=== PATIENT | female | born 1980 | race Caucasian/White ===

== ENCOUNTER 2019-04-06 14:20 | Day surgery (SDC) | payer OTHER ==
[2019-04-06] VITALS (7 sets, daily range): BP systolic 113–126; BP diastolic 80–89; PULSE 75–97; TEMP 98.1–98.2
[~2019-04-06] VITALS: Ht 160 cm; Wt 64.0 kg
[2019-04-06] MEDS ORDERED: SYNTHROID 0.0.025 MG PO (14:50)
[2019-04-06] MEDS ORDERED: OMEGA-31 SGL PO (14:50)
[2019-04-06] MEDS ORDERED: ZYRTEC 10MG10 MG PO (14:50)
--- NOTE | 2019-04-06 17:00 | NUR ---
The patient was taken back via cart to the oeprating room. The patient's chart was sent with her to surgery. The patient's belongings were taken over to the recovery room and will be transferred with her to her room post operatively. The patient's family was going back to the waiting room to receive updates from the operating room during surgery.
--- NOTE | 2019-04-06 19:10 | NUR ---
Pt. arrived to the floor from PACU at this time. Pt. is A&OX3 but groggy. Vitals stable. Pt. reports feeling like they need to urinate. Pt. assisted to bathroom at this time. Pt. unable to urinate yet and got very nauseated. Pt. given Zofran and assisted back to bed. Will monitor.
--- NOTE | 2019-04-06 21:10 | NUR ---
Pt. reported pain at a 6 on pain scale, gave 1 Percocet.
--- NOTE | 2019-04-06 21:30 | NUR ---
Pt. reported that nausea had not improved. Dr. Khan notified. New orders received.
--- NOTE | 2019-04-06 21:58 | NUR ---
Pt. continues to have difficulty urinating and with pain. Dr. Quintanilla notified. Discussed straight cathing. Reported that pt. was bladderscanned and only had [address] Quintanilla agrees it would be best to have pt. stay the night. Will continue to monitor.
[2019-04-07] VITALS: BP 106/63; PULSE 67; TEMP 98.1
[2019-04-07 04:00] VITALS: BP 116/85; PULSE 69; TEMP 97.9
[2019-04-07 07:31] VITALS: BP 95/60; PULSE 73; TEMP 98.8
[2019-04-07] MEDS ORDERED: PYRIDIUM 100MG100 MG PO (08:17)
[2019-04-07] MEDS ORDERED: NORCO 325 MG-51 TAB PO (08:17)
--- NOTE | 2019-04-07 08:45 | NUR ---
Patient is discharging home. Darryl seen patient and said she can discharge but needs to go to the office this afternoon. Discharge instructions discussed with patient. No questions verbalized. INT discontinued. Explained she has a prescription to get filled at the pharmacy. Copies of discharge instructions given to patient. Patient walked out via wheel chair by Darlyn MARTINEZ.
== END 2019-04-07 08:45 | disposition home or self-care (01) ==
LOC: SDCO 14:20 → SURG 19:10 → SDCO 04-07 08:45
DX: C67.9 Malignant neoplasm of bladder, unspecified (principal); E78.00 Pure hypercholesterolemia, unspecified; E03.9 Hypothyroidism, unspecified; E28.2 Polycystic ovarian syndrome; Z88.1 Allergy status to other antibiotic agents; Z88.0 Allergy status to penicillin; F17.210 Nicotine dependence, cigarettes, uncomplicated
CPT/HCPCS: OP; C1758; C1769; C2617; J0690; J2405; J2550; J2704; J3010; J7030; J7120; Q9967

== ENCOUNTER 2019-04-11 09:28 | Outpatient (CLI) | payer OTHER ==
[~2019-04-11] VITALS: Ht 160 cm; Wt 63.3 kg
[~2019-04-11 09:28] MED LIST: NORCO 325 MG-51 TAB PO; OMEGA-31 SGL PO; PYRIDIUM 100MG100 MG PO; SYNTHROID 0.0.025 MG PO; ZYRTEC 10MG10 MG PO
[2019-04-11 10:03] VITALS: BP 107/77; PULSE 100; TEMP 98.3
--- NOTE | 2019-04-11 11:05 | NUR ---
Pt presented for admission at 0945 with her . Admission assessment done for outpatient services. Meds were reconciled. Patient teaching done for special chemotherapy precautions to be observed for 24 hours post voiding at home. Pt verbalized understanding. Pt has spoken to her physician and signed consent for instillation of mitomycin. Pharmacy was notified of pt readiness. Pt up to void prior to starting instillation. Placed in semi fowlers position, pericare done, and sterile technique used to insert a 16 burmese kang, balloon inflated with 10 ml of sterile water. Less than 20 ml of clear yellow urine returned. Mitomycin slowly instilled into bladder. Kang balloon deflated and catheter r emoved. Instillation was completed at 1048. Pt tolerated procedure well. Dressed self and after reviewing instructions again, left ambulatory with her . She is aware to void at 1248 and that may void before if bladder becomes too full and cannot tolerate. Double flushing was again emphasized along with good housekeeping.
== END 2019-04-11 11:00 | disposition home or self-care (01) ==
LOC: EUO 09:28 → MEDICAL 09:28 → EUO 11:00
DX: C67.6 Malignant neoplasm of ureteric orifice (principal)
CPT/HCPCS: OP; J9280

== ENCOUNTER 2019-05-03 12:41 | Day surgery (SDC) | payer OTHER ==
[~2019-05-03] VITALS: Ht 160 cm; Wt 68.0 kg
[2019-05-03 13:01] VITALS: BP 107/76; PULSE 96; TEMP 97.4
[2019-05-03 15:40] VITALS: BP 117/81; PULSE 76; TEMP 98.7
--- NOTE | 2019-05-03 15:40 | NUR ---
The patient arrived back to [facility] from the recovery room at this time. The patient appears alert and oriented and denies any pain or nausea at this time. Post operative vital signs were started at this time. The patient reports mimimal pain at this time. The patient requests to try some water at this time. The patient's family was brought back to be at her bedside. Call light is within reach. Will continue to monitor the patient.
[2019-05-03] MEDS ORDERED: NORCO 325 MG-51 TAB PO (15:53)
[2019-05-03] MEDS ORDERED: PYRIDIUM 100MG100 MG PO (15:53)
[2019-05-03 15:55] VITALS: BP 120/82; PULSE 75
--- NOTE | 2019-05-03 15:55 | NUR ---
The patient appears to be tolerating the water well. The patient voices a desire to use the bathroom and was assisted by one nurse and appeared to tolerate the activity well. The patient voided without difficulty and voices a desire to be discharged home.
[2019-05-03 16:10] VITALS: BP 118/80; PULSE 76
--- NOTE | 2019-05-03 16:10 | NUR ---
Discharge instructions were reviewed with the patient and her family at this time. They all verbalized understanding and have no questions for the nurse at this time. The patient's IV to her left forearm was removed and a pressure dressing was applied to the site. The patient is dressed and ready to be escorted out.
--- NOTE | 2019-05-03 16:20 | NUR ---
The patient was escorted out via wheelchair to a private vehicle by [facility]. The patient's belongings and discharge paperwork were sent with her. The patient's family is present to drive her home.
== END 2019-05-03 16:20 | disposition home or self-care (01) ==
LOC: SDCO 12:41
DX: C67.9 Malignant neoplasm of bladder, unspecified (principal); N28.89 Other specified disorders of kidney and ureter; E78.00 Pure hypercholesterolemia, unspecified; E03.9 Hypothyroidism, unspecified; E28.2 Polycystic ovarian syndrome; F17.210 Nicotine dependence, cigarettes, uncomplicated; Z80.3 Family history of malignant neoplasm of breast; J30.2 Other seasonal allergic rhinitis; Z88.1 Allergy status to other antibiotic agents; Z88.0 Allergy status to penicillin
CPT/HCPCS: C1769; C2617; J0690; J2704; J3010; J7120; Q9967